=== PATIENT | female | born 1950 | race Caucasian/White ===

== ENCOUNTER 2020-07-18 13:00 | Emergency (ER) | payer MEDICARE, OTHER, SELFPAY ==
[2020-07-18 13:15] VITALS: BP 125/58; PULSE 65; RESP 18; TEMP 37.2; O2SAT 97
--- NOTE | 2020-07-18 13:21 | ED.GENADULT ---
HPI - General Adult General Chief complaint: Back Pain/Injury Stated complaint: Back pain Time Seen by Provider: 07/18/20 13:21 Source: patient and family Mode of arrival: ambulatory Limitations: no limitations History of Present Illness HPI narrative: 70-year-old female patient presents to the [facility] accompanied by her daughter with complaints of low back pain. Daughter states that they were writing down some back roads and states that she hit a bump and after hitting a bump her mother was complaining of low back pain. Daughter states that this happened 20 minutes prior to arrival. Daughter states that they have not tried any Tylenol, ibuprofen or eating heating pad since the incident. Her daughter patient is pretty sedentary due to a fall that she had a couple months ago but is able to typically walk and does not use any type of cane or wheelchair. Daughter states that she currently is in some rehab doing some exercises at this time. Patient denies any numbness and tingling down the leg. Denies any loss of bowel or bladder control Related Data Home Medications Medication Instructions Recorded Confirmed atorvastatin 07/18/20 carbamazepine mg PO 07/18/20 diltiazem HCl PO 07/18/20 donepezil mg 07/18/20 ergocalciferol (vitamin D2) 07/18/20 warfarin 07/18/20 warfarin 07/18/20 Allergies Allergy/AdvReac Type Severity Reaction Status Date / Time No Known Allergies Allergy Unverified 03/20/14 11:03 Review of Systems Review of Systems: Narrative: CONSTITUTIONAL: Denies fever, chills, or sweats. EYES: Denies visual changes, redness, or discharge. ENT: Denies rhinorrhea, congestion, sore throat, or otalgia. CARDIOVASCULAR: Denies chest pain, palpitations, or edema. RESPIRATORY: Denies cough or dyspnea. GASTROINTESTINAL: Denies abdominal pain, nausea, vomiting, or diarrhea. GENITOURINARY: Denies dysuria or hematuria. SKIN: Denies rash or itching. MUSCULOSKELETAL: Denies back pain, joint pain, or myalgia. NEUROLOGIC: Denies headache, numbness, or weakness. PSYCHIATRIC: Denies anxiety or depression. [facility] Past Medical History Medical History (Updated 07/18/20 @ 13:36 by LINDSAY Diane) CVA (cerebral vascular accident) Hypertension Surgical History Surgical History (Updated 07/18/20 @ 13:22 by LINDSAY Diane) H/O: hysterectomy Comments At the time of my signature I agree with nursing past medical history, surgical, social, and family history. There is no relevant family history pertinent to the presenting complaint. Exam Narrative: Exam Narrative: GENERAL: Well-appearing, well-nourished, and in no acute distress. HEAD: Normocephalic, atraumatic. EYES: PERRLA and EOMI. ENT: Nares clear, no rhinorrhea or epistaxis. Mucous membranes moist. NECK: Supple. No lymphadenopathy CHEST: Clear to auscultation. No respiratory distress. HEART: Regular rate and rhythm. No murmur heard. Normal peripheral pulses. ABDOMEN: Soft, nontender, nondistended, normal active bowel sounds. EXTREMITIES: Normal range of motion. No edema. BACK: Patient is able to ambulated without assistance. Pt is seated on the chair in no obvouis distress. No surface trauma noted. muscle tenderness to Palpation of the lower back. Spasm palpated to bilateral sides of the spine but no obvious spasm or mass noted on palpation of the spine. No step-offs or deformity noted to the cervical, thoracic or lumbar spine to firm Palpation at the midline. No CVA tenderness to percussion. No saddle anesthesia. ROM: able to stand erect. Normal flexion, extension, Lateral bending and rotation. SKIN: Warm, dry, no rash. NEURO: No focal deficits. Alert and oriented x3. Course Vital Signs Vital signs: Vital Signs Temperature 37.2 C 07/18/20 13:15 Pulse Rate 65 07/18/20 13:15 Respiratory Rate 18 07/18/20 13:15 Blood Pressure 125/58 L 07/18/20 13:15 Pulse Oximetry 97 07/18/20 13:15 Temperature 37.2 C 07/18/20 13:15 Pu
== END 2020-07-18 13:42 | disposition home or self-care (01) ==
PROVIDERS: Emergency Provider Nurse Practitioner Family; PCP Family Medicine
DX: M62.830 Muscle spasm of back (principal); M54.5 Low back pain; Z86.73 Personal history of transient ischemic attack (TIA), and cerebral infarction without residual deficits; I10 Essential (primary) hypertension; F03.90 Unspecified dementia, unspecified severity, without behavioral disturbance, psychotic disturbance, mood disturbance, and anxiety; E78.00 Pure hypercholesterolemia, unspecified
CPT/HCPCS: 99211; G0463

== ENCOUNTER 2021-11-15 15:09 | Emergency (ER) | payer MEDICARE, OTHER, SELFPAY ==
[2021-11-15 15:19] VITALS: BP 111/75; PULSE 99; RESP 16; TEMP 36.6; O2SAT 100
[2021-11-15 15:40] VITALS: BP 111/75; PULSE 99; RESP 16; TEMP 36.6; O2SAT 100
--- NOTE | 2021-11-15 16:22 | ED.GENADULT ---
HPI - General Adult General Chief complaint: Abdominal Pain Stated complaint: left side pain Time Seen by Provider: 11/15/21 16:22 History of Present Illness HPI narrative: Patient brought in by family member for evaluation of increased weakness and left-sided pain. Daughter states patient fell at the halfway 3 days ago but it was not a witnessed fall. Patient has complained of left sided change that radiates to the left abdomen pain since the incident. No bruising noted no fever no cough no runny nose. Daughter states patient is weak and is unable to walk at this time. Related Data Home Medications Medication Instructions Recorded Confirmed atorvastatin 80 mg PO DAILY 07/18/20 11/15/21 carbamazepine 100 mg PO DAILY 07/18/20 11/15/21 diltiazem HCl 120 mg PO DAILY 07/18/20 11/15/21 donepezil 10 mg PO DAILY 07/18/20 11/15/21 warfarin 7.5 mg PO DAILY 07/18/20 11/15/21 mirtazapine 7.5 mg PO DAILY 11/15/21 11/15/21 oxybutynin chloride 5 mg PO DAILY 11/15/21 11/15/21 Allergies Allergy/AdvReac Type Severity Reaction Status Date / Time No Known Allergies Allergy Verified 11/15/21 15:35 Review of Systems Review of Systems: CONSTITUTIONAL: Denies chills, or sweats. Reports fever and generalized body aches EYES: Denies visual changes, redness, or discharge. ENT: Denies otalgia. Reports nasal congestion runny nose and sore throat CARDIOVASCULAR: Denies chest pain, palpitations, or edema. RESPIRATORY: Denies dyspnea. Reports occasional cough GASTROINTESTINAL: Denies abdominal pain, nausea, vomiting, or diarrhea. GENITOURINARY: Denies dysuria or hematuria. SKIN: Denies rash or itching. MUSCULOSKELETAL: Denies back pain, joint pain, or myalgia. Reports generalized body aches NEUROLOGIC: Denies headache, numbness, or weakness. PSYCHIATRIC: Denies anxiety or depression. Allergic/Immunologic: Comments: At time of signature, agree with nursing past medical, surgical, social and family history. There is no relevant family history pertinent to the presenting complaint [facility] Past Medical History Medical History (Updated 11/15/21 @ 16:34 by LINDSAY Fitzgerald) CVA (cerebral vascular accident) Hypertension Surgical History Surgical History (Updated 07/18/20 @ 13:22 by LINDSAY Diane) H/O: hysterectomy Exam Narrative: GENERAL: Well-appearing, well-nourished, and in no acute distress. HEAD: Normocephalic, atraumatic. EYES: PERRLA and EOMI. ENT: Nares clear, no rhinorrhea or epistaxis. Mucous membranes moist. NECK: Supple. CHEST: Clear to auscultation. No respiratory distress. ALL PAIN REPRODUCIBLE. RIB TENDER. NO CREPITUS OR SQ EMPHYSEMA OR DEFORMITY OR STEP OFFS. NO ECCHYMOSIS OR LESIONS. Left lower quadrant pain HEART: Regular rate and rhythm. No murmur heard. Normal peripheral pulses. ABDOMEN: Soft, nontender, nondistended, normal active bowel sounds. Left lower quadrant pain EXTREMITIES: Normal range of motion. No edema. SKIN: Warm, dry, no rash. NEURO: No focal deficits. Alert and oriented x3. Vass Coma Scale Eye Opening: Spontaneous 4 Vass Coma Scale Motor: Obeys Commands 6 Vass Coma Scale Verbal: Oriented 5 Grace Coma Scale Total 15 Course Course Level of Care: Express Care Visit Vital Signs Vital signs: Vital Signs Temperature 36.6 C 11/15/21 15:19 Pulse Rate 99 11/15/21 15:19 Respiratory Rate 16 11/15/21 15:19 Blood Pressure 111/75 11/15/21 15:19 Pulse Oximetry 100 11/15/21 15:19 Temperature 36.6 C 11/15/21 15:40 Pulse Rate 99 11/15/21 15:40 Respiratory Rate 16 11/15/21 15:40 Blood Pressure 111/75 11/15/21 15:40 Pulse Oximetry 100 11/15/21 15:40 Unable to obtain urinalysis due to patient incontinent and unable to give a urine sample at this time. Discussed red flags and when to go to ER. Daughter agreeable that she will take her mother to the emergency room for further evaluation treatment Transfer Transfered to: [place] Transfer ratio
== END 2021-11-15 16:30 | disposition short-term general hospital (02) ==
PROVIDERS: Emergency Provider Nurse Practitioner Family; PCP Family Medicine
DX: R07.81 Pleurodynia (principal); R10.32 Left lower quadrant pain; Z86.73 Personal history of transient ischemic attack (TIA), and cerebral infarction without residual deficits; I10 Essential (primary) hypertension; W19.XXXA Unspecified fall, initial encounter
CPT/HCPCS: 99212; G0463